=== PATIENT | female | born 1960 | race Two or more races ===

== ENCOUNTER 2017-12-20 18:12 | Emergency (ER) | payer SELFPAY ==
[~2017-12-20] VITALS: Ht 154.9 cm; Wt 63.5 kg
[2017-12-20] MEDS ORDERED: cefTRIAXone 1GM/10ml IVPUSH 10 ML IV ONE (22:15)
[2017-12-20] MEDS ORDERED: ONDANSETRON HCL 4 MG/2 ML VIAL IV ONE (22:15)
[2017-12-20] MEDS ORDERED: MORPHINE SULFATE 8mg/ml INJ SDV IV ONE (22:15)
[2017-12-20] MEDS ORDERED: TETANUS-DIPTH-ACEL PERTUSSIS 0.5ML SYRG IM ONE (22:15)
[2017-12-20] MEDS ORDERED: LIDOCAINE 1% HCL (LOCAL ANESTH.) INJ 20ML MDV ONE (22:27)
[2017-12-20] MEDS ORDERED: MORPHINE SULFATE 4 MG/ML SYR/VIAL ONE (22:30)
[2017-12-20] MEDS ORDERED: LIDOCAINE 2% (LOCAL ANESTH.) PF 5ml SDV ONE ×2 (22:49→22:54)
[2017-12-20] MEDS ORDERED: BACITRACIN TOP OINT 1 UD PKG TOP ONE ×2 (23:40→23:42)
[2017-12-21 01:35] VITALS: BP 118/82
== END 2017-12-21 01:37 | disposition home or self-care (01) ==
LOC: ER 18:12
DX: S81.811A Laceration without foreign body, right lower leg, initial encounter (principal); S91.201A Unspecified open wound of right great toe with damage to nail, initial encounter; S70.312A Abrasion, left thigh, initial encounter; I10 Essential (primary) hypertension; W20.8XXA Other cause of strike by thrown, projected or falling object, initial encounter; Y93.89 Activity, other specified; Y92.096 Garden or yard of other non-institutional residence as the place of occurrence of the external cause; Y99.8 Other external cause status
CPT/HCPCS: 11730; 12035; 73630; 90471; 90715; 96374; 96375; 99284; J2001; J2270; J2405